=== PATIENT | female | born 1965 | race Hispanic/Latino ===

== ENCOUNTER 2019-04-12 19:33 | Observation (INO) | payer SELFPAY ==
[~2019-04-12 19:33] MED LIST: ISOVUE-370 76%-LOCM 1 ML ONE
[2019-04-12 20:51] LABS: #Basophils 0.1 thou/uL (0.0-0.2); #Eosinphils 0.1 thou/uL (0.0-0.7); #Lymphocytes 2.8 thou/uL (1.20-3.40); #Monocytes 0.8 thou/uL (0.11-0.59); #Neutrophils 15.1 thou/uL (1.40-6.50); %Basophils 0.3 % (0.0-1.0); %Eosinophils 0.5 % (0.0-10.0); %Lymphocytes 14.6 % (21.0-51.0); %Monocytes 4.3 % (0.0-10.0); %Neutrophils 80.3 % (42.0-75.0); Hemoglobin 14.9 g/dL (12.0-16.0); Mean Corpuscular HGB CONC 34.1 g/dL (32.0-36.0); Mean Corpuscular Hemoglobin 28.9 pg (27.0-31.0); Mean Corpuscular Volume 84.9 fL (78.0-98.0); Mean Platelet Volume 7.7 fL (7.4-10.4); Platelet Count 388 thou/uL (130-400); RBC Distribution Width 12.3 % (11.5-14.5); Red Blood Cell (RBC) Count 5.15 mill/uL (4.20-5.40); White Blood Cell (WBC) Count 18.8 thou/uL (4.8-10.8)
[2019-04-12 21:06] LABS: ALT (SGPT) 24 U/L (8-55); AST (SGOT) 14 U/L (5-34); Albumin 4.6 g/dL (3.5-5.0); Alkaline Phosphatase 101 U/L (40-150); Anion Gap 11 mmol/L (10-20); BUN (Urea Nitrogen) 12 mg/dL (9.8-20.1); Bilirubin, Total 0.5 mg/dL (0.2-1.2); Calc. Creatinine Clearance 0 mL/min (70-130); Calcium 9.9 mg/dL (7.8-10.44); Carbon Dioxide 31 mmol/L (22-29); Chloride 99 mmol/L (98-107); Estimated GFR-MDRD Greater than 90; Globulin 3.7 g/dL (2.4-3.5); Glucose 117 mg/dL (70-105); Lipase 17 U/L (8-78); Potassium 3.8 mmol/L (3.5-5.1); Protein, Total 8.3 g/dL (6.0-8.3); Sodium 137 mmol/L (136-145)
[2019-04-12 21:31] LABS: Bilirubin Negative (Negative); Blood, Urine Small (Negative); Glucose, Urine (Dipstick) Negative (Negative); Leukocyte Negative (Negative); Nitrite Negative (Negative); Protein, Urine (Dipstick) 100 mg/dL (Neg-Trace); Urobilinogen 0.2 mg/dL (Less than 2)
[2019-04-12 21:32] LABS: Clarity Cloudy (Clear); Pregnancy Test - Urine (BHCG) Negative (Negative); Pregu Control Background? CLEAR/WHITE (CLR/WHITE); Pregu Control Bar Appear? YES (CONTROL BAR)
[2019-04-12 21:35] LABS: Bacteria/HPF Rare-Few HPF (None Seen); RBC/HPF 0-3 HPF (0-3); Squamous Epithelial 0-3 HPF (0-3); WBC/HPF 0-3 HPF (0-3)
[2019-04-12] MEDS ORDERED: Ondansetron ODT 4 MG TAB ONE (22:14)
[2019-04-12] MEDS ORDERED: Morphine 4 MG/ML VIAL ONE ×2 (22:14→23:45)
--- NOTE | 2019-04-12 22:54 | CT ---
CT abdomen and pelvis with IV contrast HISTORY: Abdominal pain. FINDINGS: Lung bases are clear. Hyperdense stones in the gallbladder lumen. Solid organs are intact. Nonspecific lymph nodes throughout the retroperitoneum. The appendix projects laterally and extends superiorly from the cecal base. It is dilated up to 1.1 c m with fluid and gas. Mildly thickened wall with circumferential fat stranding. No free air or free fluid. IMPRESSION: Acute appendicitis. Atherosclerosis.
[2019-04-12] MEDS ORDERED: Piperacillin/Tazobactam 4.5 GM in Sodium Chloride 0.9% 100 ML IVPB SCH (23:45)
[2019-04-13] MEDS ORDERED: Morphine 2 MG/ML SYRINGE SLOW IVP PRN (02:33)
[2019-04-13] MEDS ORDERED: Ondansetron ODT 4 MG TAB SL PRN (02:34)
[2019-04-13] MEDS ORDERED: Sodium Chloride 0.9% 1,000 ML IV SCH (02:34)
[2019-04-13] MEDS ORDERED: Ondansetron PF 4 MG/2 ML Vial IVP PRN (02:34)
[2019-04-13] MEDS ORDERED: Morphine 4 MG/ML VIAL SLOW IVP PRN (02:34)
[2019-04-13 02:37] VITALS: BMI 27.3
[2019-04-13] MEDS ORDERED: Acetaminophen 1,000 MG in Premix Bag 1 BAG IVPB PRN (05:08)
[2019-04-13] MEDS ORDERED: Ketorolac Tromethamine 30 MG/ML VIAL IVP PRN (05:08)
[2019-04-13] MEDS ORDERED: Piperacillin/Tazobactam 4.5 GM in Sodium Chloride 0.9% 100 ML IVPB SCH (06:00)
[2019-04-13] MEDS ORDERED: Fentanyl 100 MCG/2 ML VIAL ONE (07:50)
[2019-04-13] MEDS ORDERED: Bupivacaine HCl 0.5%/Epinephrine 1:200,000/PF 30 ml Vial ONE (07:52)
[2019-04-13] MEDS ORDERED: traMADol HCl 50 MG TAB PO PRN ×2 (08:30)
[2019-04-13] MEDS ORDERED: Acetaminophen 500 MG TAB PO PRN (08:30)
[2019-04-13] MEDS ORDERED: Ibuprofen 600 MG TAB PO PRN (08:30)
[2019-04-13] MEDS ORDERED: Ondansetron HCl/PF 4 MG/2 ML Vial IVP PRN (09:09)
[2019-04-13] MEDS ORDERED: Promethazine HCl 25 MG/ML VIAL IM PRN (09:09)
[2019-04-13] MEDS ORDERED: Promethazine HCl 25 MG/ML VIAL SLOW IVP PRN (09:09)
--- NOTE | 2019-04-13 09:43 | HP ---
HISTORY OF PRESENT ILLNESS: Tosha Gomes is a 53-year-old female presents with right lower quadrant pain for 24 hours, anorexia, seen in the emergency room, noted to have a white count of 18, hemoglobin 14. Basic metabolic profile is normal. Undergoing CAT scan 04/12/2019 at 2132 hours noting changes consistent with acute appendicitis. The patient has remained afebrile overnight. ALLERGIES: NONE. TOBACCO: None. ALCOHOL: Very minimal, rarely. MEDICATIONS: 1. Vitamin D. 2. Nexium. PAST SURGICAL HISTORY: Three C-sections. PAST MEDICAL HISTORY: Noncontributory. SOCIAL HISTORY: The patient cleans houses for living. She is Setswana-speaking only. She is accompanied by her . [facility] [employer] phone used for communication. FAMILY HISTORY: Noncontributory. REVIEW OF SYSTEMS: Ten-point noncontributory. PHYSICAL EXAMINATION: VITAL SIGNS: Height 5 feet 2 inches, 149 pounds, 27 BMI. Temperature 97.7 degrees, heart rate 75, and blood pressure 151/83. HEAD, EARS, EYES, NOSE AND THROAT: Unremarkable. LUNGS: Clear to auscultation. CARDIAC: Regular rate and rhythm. No murmur or gallop. ABDOMEN: Soft. Tenderness in right lower quadrant, guarding and rebound. Positive Rovsing sign. EXTREMITIES: Unremarkable. Ankles, without edema. Palpable pedal pulses. NEUROLOGICAL: Intact. No focal deficit. LYMPH: No lymphadenopathy in neck, axilla, or groins. ASSESSMENT AND PLAN: Acute appendicitis. Would recommend laparoscopic video appendectomy. Risks of infection, bleeding, visceral injury explained, she consents. Job ID: [id number]
[2019-04-13] MEDS ORDERED: Rocuronium Bromide 10 MG/ML (10ML VIAL) ONE (13:09)
[2019-04-13] MEDS ORDERED: PROPOFOL 200 MG/20 ML VIAL ONE (13:09)
[2019-04-13] MEDS ORDERED: Ondansetron PF 4 MG/2 ML Vial ONE (13:09)
[2019-04-13] MEDS ORDERED: Dexamethasone 20 MG/5 ML VIAL ONE (13:09)
[2019-04-13] MEDS ORDERED: Lidocaine 1% PF 5 ML VIAL ONE ×2 (13:09)
[2019-04-13] MEDS ORDERED: Glycopyrrolate 0.2 MG/ML 5 ML SYRINGE ONE (13:09)
[2019-04-13] MEDS ORDERED: ePHEDrine 50 MG/ML VIAL ONE (13:09)
--- NOTE | 2019-04-13 15:50 | OP ---
DATE OF PROCEDURE: 04/13/2019 PREOPERATIVE DIAGNOSIS: Acute appendicitis. POSTOPERATIVE DIAGNOSIS: Acute appendicitis. Now, the patient had extravasation of a fecalith and the small purulent material that was evacuated rapidly and fecalith removed. No significant soilage. Sent home with Augmentin. PROCEDURE: Laparoscopic video appendectomy. ANESTHESIA: General, local of 0.5% Marcaine with epinephrine 30 mL. DESCRIPTION OF PROCEDURE: The patient was taken to the operating room, where under general anesthesia, abdomen was prepared with ChloraPrep and draped in routine fashion. Acevedo catheter was placed at the beginning of procedure, removed at the end. Right subcostal incision was made. Pneumoperitoneum to 15 mmHg was obtained with a Veress needle, replacing with a 5 port, and video laparoscope was inserted. There were adhesions from the prior C-sections in the infraumbilical area, but infraumbilical incision was made and a 5 port was placed under laparoscopic visualization, avoiding these. Video laparoscope moved to this port. Suprapubic incision was made and a 12 port was placed. Appendix was acutely inflamed, retrocecal, dissected free, divided the mesoappendix with the LigaSure. The stump of the appendix was divided at the cecal stump with the Endo-PJ blue load stapler. Stapled cecal stump was hemostatic and secured. The appendix was placed in Endobag and removed. The pericecal area was copiously irrigated. Irrigant was evacuated. Hemostasis was noted. Pneumoperitoneum was evacuated. All instruments were removed. All skin incisions were approximated with interrupted subdermal 4-0 Monocryl after closing suprapubic fascia with 0 Vicryl. Job ID: [id number]
[2019-04-13 17:04] VITALS: BP 111/72; TEMP 97.5
[2019-04-13] MEDS ORDERED: Amoxicillin/Potassium Clav 875 MG TAB PO SCH (21:00)
--- NOTE | 2019-04-16 11:35 | DIS ---
DATE OF ADMISSION: 04/13/2019 DATE OF DISCHARGE: 04/13/2019 DISCHARGE DIAGNOSIS: Appendicitis. PROCEDURE: Laparoscopic video appendectomy. HISTORY: A 53-year-old female with less than 24-hour history of right lower quadrant pain, presented to the emergency room, noted to have an elevated white count. CAT scan evidenced of appendicitis. Admitted for intravenous antibiotics, fluids, taken to the operating room for laparoscopic video appendectomy. Discharged home the next day on Ultram and Augmentin 875 p.o. b.i.d. for 5 days. She will take Tylenol, Advil as necessary. Follow up in my office in 2 to 3 weeks. Diet and activity as tolerated. Job ID: [id number]
--- NOTE | 2019-04-21 13:50 | EKG ---
Test Reason : ERS.[facility] Blood Pressure : / mmHG Vent. Rate : 073 BPM Atrial Rate : 073 BPM P-R Int : 172 ms QRS Dur : 100 ms QT Int : 384 ms P-R-T Axes : 051 -01 007 degrees QTc Int : 423 ms Normal sinus rhythm Normal ECG Confirmed by JOAQUIN BANUELOS DO ([id number]), web editor MOLINA AGEE ([id number] on 04/21/2019 1:50:28 PM Referred By: Confirmed By:JOAQUIN BANUELOS DO
== END 2019-04-13 17:10 | disposition home or self-care (01) ==
LOC: ERS 19:33 → SURG A 04-13 02:15
PROVIDERS: ADMIT Specialist; ATTEND Specialist
PROC: 0DTJ4ZZ Resection of Appendix, Percutaneous Endoscopic Approach (ICD-10-PCS; principal; 2019-04-13)
DX: K35.80 Unspecified acute appendicitis (principal)
CPT/HCPCS: 36415; 74177; 80053; 81003; 81015; 81025; 83690; 85025; 88304; 93005; 96361; 96365; 96375; 96376; G0378; J0131; J0670; J1100; J1885; J2001; J2270; J2405; J2543; J2704; J3010; J3490; Q0162; Q9966